=== PATIENT | male | born 1990 | race Hispanic/Latino ===

== ENCOUNTER 2025-05-11 14:29 | Emergency (ER) | payer BC ==
--- NOTE | 2025-05-11 15:17 | EDPHYS ---
Physician Documentation [facility] Name: Lalo Gentile Age: 35 yrs Sex: Male : 1990 Arrival Date: 05/11/2025 Time: 14:29 Bed DX4 Private MD: ED Physician Danielle Hollins HPI: 05/11 15:08 This 35 yrs old Male presents to ER via Ambulatory with complaints of Low Back Pain. cr8 15:08 Patient is a 35-year-old male with a history of lipomas that comes to the emergency cr8 room complaining of pain to left lower back where his lipomas are. Reports he has had the lipomas for years but he lost weight and they stopped bothering him. Reports that been bothering him for the last couple weeks. Also complains of bilateral calf pain. The bilateral calf pain is worse on the weekends when he is not working. No neurovascular symptoms. Neurovascular system distally is intact. Denies any recent injury. He is not having any saddle paresthesia or loss of bladder bowel control.. Historical: - Allergies: 14:57 No Known Allergies; me1 - Home Meds: 14:57 None [Active]; me1 - PMHx: 14:57 lipoma to bilateral lower back; me1 - PSHx: 14:57 None; me1 - Immunization history:: Adult Immunizations up to date. - Infectious Disease History:: Denies. - Social history:: Smoking status: Patient denies any tobacco usage or history of. ROS: 15:08 Constitutional: as per HPI cr8 Exam: 15:08 Constitutional: This is a well developed, well nourished patient who is awake, alert, cr8 and in no acute distress. Back: No spinal tenderness. No costovertebral tenderness. Full range of motion. There is a 3 x 2 cm soft tissue mass over the left SI joint. It is mobile. Minimal tenderness. No overlying warmth erythema induration or fluctuance. He has no vertebral tenderness on exam. There is no step-offs or crepitus. Skin: Warm, dry with normal turgor. Normal color with no rashes, no lesions, and no evidence of cellulitis. MS/ Extremity: Pulses equal, no cyanosis. Neurovascular intact. Full, normal range of motion. Neuro: Awake and alert, GCS 15, oriented to person, place, time, and situation. Cranial nerves II-XII grossly intact. Motor strength 5/5 in all extremities. Sensory grossly intact. Vital Signs: 14:56 BP 133 / 83; Pulse 85; Resp 18; Temp 98.3; Pulse Ox 100% ; Weight 95.25 kg; Height 5 me1 ft. 6 in. ; Pain 8/10; 14:56 Body Mass Index 33.89 (95.25 kg, 167.64 cm) me1 14:56 Pain Scale: Adult me1 MDM: 15:07 Medical Screening Exam initiated cr8 15:08 Data reviewed: vital signs, nurses notes. ED course: Patient came in for lower back cr8 pain from his lipomas. Considered spinal epidural abscess, low back sprain, tumor, abscess, cauda equina. His presentation and examination are not consistent with spinal epidural abscess. He has had no fever, he is not immunocompromise. Presentation not consistent with malignancy (lack of history of malignancy, lack of B symptoms), fracture (no trauma, no bony tenderness to palpation), cauda equina (no bowel or urinary incontinence/retention, no saddle anesthesia, no distal weakness), AAA, viscus perforation, osteomyelitis or epidural abscess (no IVDU, vertebral tenderness). No emergent condition identified with the low back pain. It is likely muscle skeletal related to his lipoma. Also complained of bilateral calf pain. Considered intermittent claudication, ischemic injury, DVTs. However this been going on for 2 weeks so do not suspect fracture or dislocation. On examination his distal pulses are intact bilaterally, bilateral lower feet are warm have good color and sensation so do not suspect a neurovascular condition like acute ischemia. Considered DVT but there is no recent immobilization, Wells criteria for DVT is low risk. He has no warmth erythema or edema to his lower extremities. Likely his lower extremity pain is related to muscle skeletal as he works on his feet a lot. Discussed treatment plan with him including symptomatic treatment with pain medicine and follow-up with a surgeon and PCP.. Administered Medications: No medications were administered Disposition Summary: 05/11/25 15:16 Discharge Ordered Notes: Location: Home cr8 Condition: Stable cr8 Diagnosis - Lipomas cr8 - Unspecified symptoms and signs involving the musculoskeletal system cr8 - Low back pain cr8 - Bilateral calf pain cr8 Followup: cr8 - With: Private Physician - When: - Reason: Further diagnostic work-up, Recheck today's complaints, Continuance of care Followup: cr8 - With: Emergency Department - When: As needed - Reason: Trouble breathing, Worsening of condition, Chest pain, cold distal extremities, neurological symptoms that numbness tingling or loss of bladder bowel control Discharge Instructions: - Discharge Summary Sheet cr8 - Acute Back Pain, Adult cr8 - Lipoma cr8 - Musculoskeletal Pain cr8 Forms: - Medication Reconciliation Form cr8 - Patient Portal Instructions cr8 - Leadership Thank You Letter cr8 Prescriptions: - Naprosyn 500 mg Oral tablet - take 1 tablet ORAL route every 12 hours take with food as needed for pain PRN; cr8 20 tablet; Refills: 0, Product Selection Permitted Signatures: Tami Winston RN RN me1 Polo Watson NP [employer] cr8 Corrections: (The following items were deleted from the chart) 14:58 14:57 Home Meds: Unable to obtain; 1 junior
--- NOTE | 2025-05-11 15:17 | ER ---
Nurse's Notes [facility] Name: Lalo Gentile Age: 35 yrs Sex: Male : 1990 Arrival Date: 05/11/2025 Time: 14:29 Bed DX4 Private MD: Diagnosis: Lipomas;Unspecified symptoms and signs involving the musculoskeletal system;Low back pain;Bilateral calf pain Presentation: 05/11 14:56 Chief complaint: Patient states: c/o left lower back pain where lipomas are and pain to me1 bilateral calves. Pain 8/10. Denies injury. Denies fever. Coronavirus screen: Vaccine status: Patient reports being unvaccinated. Ebola Screen: No symptoms or risks identified at this time. Initial Sepsis Screen: Does the patient meet any 2 criteria? No. Patient's initial sepsis screen is negative. Does the patient have a suspected source of infection? No. Patient's initial sepsis screen is negative. Risk Assessment: Do you want to hurt yourself or someone else? Patient reports no desire to harm self or others. Onset of symptoms is unknown. 14:56 Method Of Arrival: Ambulatory [facility] [place] 14:56 Acuity: MARGAUX 3 me1 Triage Assessment: 14:58 General: Appears uncomfortable, Behavior is calm, cooperative, appropriate for age. me1 Pain: Complains of pain in right leg and left leg Pain does not radiate. Pain currently is 8 out of 10 on a pain scale. Quality of pain is described as aching, Pain began gradually, Is continuous. EENT: No signs and/or symptoms were reported regarding the EENT system. Neuro: Level of Consciousness is awake, alert, obeys commands, Oriented to person, place, time, situation, Appropriate for age. Cardiovascular: Patient's skin is warm and dry. Respiratory: Airway is patent Respiratory effort is even, unlabored, Respiratory pattern is regular, symmetrical. GI: No signs and/or symptoms were reported involving the gastrointestinal system. : No signs and/or symptoms were reported regarding the genitourinary system. Derm: Skin is intact, is healthy with good turgor, Skin is normal. Musculoskeletal: Reports pain in right leg, left leg and back. Historical: - Allergies: 14:57 No Known Allergies; me1 - Home Meds: 14:57 None [Active]; me1 - PMHx: 14:57 lipoma to bilateral lower back; me1 - PSHx: 14:57 None; me1 - Immunization history:: Adult Immunizations up to date. - Infectious Disease History:: Denies. - Social history:: Smoking status: Patient denies any tobacco usage or history of. Assessment: 15:27 Reassessment: Patient is alert, oriented x 3, equal unlabored respirations, skin aa5 warm/dry/pink. Vital Signs: 14:56 BP 133 / 83; Pulse 85; Resp 18; Temp 98.3; Pulse Ox 100% ; Weight 95.25 kg; Height 5 me1 ft. 6 in. ; Pain 8/10; 14:56 Body Mass Index 33.89 (95.25 kg, 167.64 cm) me1 14:56 Pain Scale: Adult mn1 ED Course: 14:33 Patient arrived in ED. im 14:36 Polo Watson NP is PHCP. cr8 14:36 Danielle Hollins MD is Attending Physician. cr8 14:57 Triage completed. me1 14:57 Arm band placed on Patient placed in waiting room. me1 15:27 No provider procedures requiring assistance completed. Patient did not have IV access aa5 during this emergency room visit. Administered Medications: No medications were administered Outcome: 15:16 Discharge ordered by . cr8 15:27 Discharged to home ambulatory, with family, aa5 15:27 Condition: stable 15:27 Discharge instructions given to patient, Instructed on discharge instructions, follow up and referral plans. medication usage, Demonstrated understanding of instructions, follow-up care, medications, Prescriptions given X 1, 15:27 Patient left the ED. aa5 Signatures: Alba Gamble, RN RN aa5 Maria Isabel Teresa Tami Winston RN RN me1 Polo Watson NP [employer] C[employer]IAN cr8 Corrections: (The following items were deleted from the chart) 14:58 14:57 Home Meds: Unable to obtain; me1 me1
[2025-05-11 16:07] VITALS: BP 133/83; TEMP 98.3; O2SAT 100
== END 2025-05-11 15:27 | disposition home or self-care (01) ==
LOC: ER 14:29
DX: D17.39 Benign lipomatous neoplasm of skin and subcutaneous tissue of other sites (principal); R29.91 Unspecified symptoms and signs involving the musculoskeletal system; M79.662 Pain in left lower leg; M79.661 Pain in right lower leg
CPT/HCPCS: 99283